=== PATIENT | male | born 1980 | race Caucasian/White ===

== ENCOUNTER 2019-02-16 07:57 | Emergency (ER) | payer OTHER ==
[~2019-02-16] VITALS: Ht 170.2 cm; Wt 70.3 kg
[2019-02-16 08:00] VITALS: Ht 170.2 cm; Wt 70.3 kg
[2019-02-16 08:47] LABS: BASOPHIL % 0.8 % (0-2); PLATELET COUNT 241 x10^3mcL (130-400)
[2019-02-16 08:58] LABS: C REACTIVE PROTEIN < 0.2 mg/dL (<=0.9); CALCIUM 9.6 mg/dL (8.5-10.1); CARBON DIOXIDE 29.5 mmol/L (21-32); CHLORIDE SERUM 103 mmol/L (98-107); CREATININE SERUM 0.8 mg/dL (0.7-1.3); GFR1 > 60 mL/min; GLUCOSE SERUM 106 mg/dL (74-106); POTASSIUM SERUM 4.3 mmol/L (3.5-5.1); SODIUM SERUM 141 mmol/L (136-145)
[2019-02-16 10:18] VITALS: BP 128/84
== END 2019-02-16 10:18 | disposition home or self-care (01) ==
LOC: ED 07:57
PROVIDERS: Emergency Medicine
DX: M54.12 Radiculopathy, cervical region (principal); M25.511 Pain in right shoulder; F15.10 Other stimulant abuse, uncomplicated; Z90.89 Acquired absence of other organs
CPT/HCPCS: 36415